=== PATIENT | female | born 1975 | race Caucasian/White ===

== ENCOUNTER 2016-12-29 15:19 | Emergency (ER) | payer MEDICAID ==
[~2016-12-29] VITALS: Ht 157.5 cm; Wt 61.6 kg
[~2016-12-29 15:19] MED LIST: NAPR-260 PO
[2016-12-29 15:22] VITALS: Ht 157.5 cm; Wt 61.6 kg
[2016-12-29 16:43] LABS: BASOPHILS % 0.3 % (0.0-2.0); EOSINOPHILS # 0.1 10^3/ul (0.0-0.5); EOSINOPHILS % 0.5 % (0.0-7.0); HEMOGLOBIN 11.9 g/dl (12.0-16.0); LYMPHOCYTES # 2.6 10^3/ul (0.8-2.9); LYMPHOCYTES % 25.6 % (15.0-51.0); MEAN CORPUSCULAR HEMOGLOBIN 29.2 pg (29.0-33.0); MEAN CORPUSCULAR HGB CONC 32.2 g/dl (32.0-37.0); MEAN CORPUSCULAR VOLUME 90.9 fl (82.0-101.0); MEAN PLATELET VOLUME 8.9 fl (7.4-10.4); MONOCYTE # 0.6 10^3/ul (0.3-0.9); MONOCYTES % 6.4 % (0.0-11.0); NEUTROPHIL # 6.7 10^3/ul (1.6-7.5); PLATELET COUNT 266 10^3/UL (140-415); RED BLOOD COUNT 4.07 10^6/ul (4.20-5.40); RED CELL DISTRIBUTION WIDTH 13.2 % (11.5-14.5)
--- NOTE | 2016-12-29 17:01 | RADRPT ---
PROCEDURE: XR Chest. CLINICAL INDICATION: Chest pain TECHNIQUE: Single frontal radiograph of the chest. COMPARISON: No prior FINDINGS: The lungs are clear. No pleural effusion. No pneumothorax. The cardiomediastinal silhouette is unremarkable. No acute osseous abnormalities. IMPRESSION: No acute air space infiltrates. RPTAT: AADD .Loco Carter MD, MD Date Time Electronically viewed and signed by .Loco Carter MD, on 12/29/2016 17:01 .B/
[2016-12-29 17:02] LABS: ANION GAP 17 (8-16); BLOOD UREA NITROGEN 15 mg/dl (7-20); CALCIUM 9.2 mg/dl (8.4-10.2); CARBON DIOXIDE 27 mmol/L (21-31); CHLORIDE 104 mmol/L (97-110); CREATININE 0.65 mg/dl (0.44-1.00); GLUCOSE 94 mg/dl (70-220); POTASSIUM 3.7 mmol/L (3.5-5.1); SODIUM 144 mmol/L (135-144)
[2016-12-29 17:34] LABS: TROPONIN-I < 0.012 ng/ml (0.00-0.12)
--- NOTE | 2016-12-29 17:39 | ERD ---
ER Documentation Chief Complaint Chief Complaint complains of heart palpitations since today HPI 41-year-old female presents the emergency department complaining of approximately 1 week of heart palpitations. She is a nonspecific sensation that she describes as a tiredness in her chest. She reports no shortness of breath, fevers, chills, cough, hemoptysis. ROS All systems reviewed and are negative except as per history of present illness. Medications Home Meds Active Scripts Naproxen* (Naprosyn*) 500 Mg Tablet, 500 MG PO BID Y for PAIN AND/OR INFLAMMATION, #10 TAB Prov:AUGUSTUS STUBBS DO 06/04/15 Allergies Allergies: Coded Allergies: No Known Drug Allergy (Unverified Allergy, Unknown, 11/17/13) PMhx/Soc History of Surgery: Yes (CSECTION) Anesthesia Reaction: No Hx Neurological Disorder: No Hx Respiratory Disorders: No Hx Cardiac Disorders: No Hx Psychiatric Problems: No Hx Miscellaneous Medical Probl: No Hx Alcohol Use: No Hx Substance Use: No Hx Tobacco Use: No Smoking Status: Never smoker FmHx No history of early sudden cardiac Physical Exam Vitals Vital Signs Date Time Temp Pulse Resp B/P Pulse Ox O2 Delivery O2 Flow Rate FiO2 12/29/16 15:22 98.6 83 20 146/65 100 Physical Exam GENERAL: The patient is well developed and appropriate for usual state of health in no apparent distress HEENT: Pupils equal, round, and reactive to light. EOMI. There is no scleral icterus. NECK: C-spine is soft and supple, there is no meningismus. There is no cervical lymphadenopathy. LUNGS: Clear to auscultation bilaterally. There are no rales, wheezes or rhonchi. HEART: Regular rate and rhythm, no murmurs, clicks, rubs or gallops. ABDOMEN: Soft, non-tender, non-distended. There are bowel sounds in all four quadrants. No rebound or guarding. EXTREMITIES: There is no peripheral cyanosis or edema. No focal swelling or erythema. NEURO: The patient moves all four extremities with 5/5 strength. Cranial nerves II - XII are intact. Normal gait. Alert and oriented SKIN: There is no apparent rash or petechiae. HEME/LYMPHATIC: There is no evidence of excessive bruising or lymphedema. PSYCHIATRIC: The patient does not appear anxious or depressed. Result Diagram: 12/29/16 1635 12/29/16 1635 Results 24 hrs Laboratory Tests Test 12/29/16 16:35 White Blood Count 10.010^3/ul Red Blood Count 4.0710^6/ul Hemoglobin 11.9g/dl Hematocrit 37.0% Mean Corpuscular Volume 90.9fl Mean Corpuscular Hemoglobin 29.2pg Mean Corpuscular Hemoglobin Concent 32.2g/dl Red Cell Distribution Width 13.2% Platelet Count 22865^3/UL Mean Platelet Volume 8.9fl Neutrophils % 67.0% Lymphocytes % 25.6% Monocytes % 6.4% Eosinophils % 0.5% Basophils % 0.3% Nucleated Red Blood Cells % 0.0/100WBC Neutrophils # 6.710^3/ul Lymphocytes # 2.610^3/ul Monocytes # 0.610^3/ul Eosinophils # 0.110^3/ul Basophils # 0.010^3/ul Nucleated Red Blood Cells # 0.010^3/ul Sodium Level 144mmol/L Potassium Level 3.7mmol/L Chloride Level 104mmol/L Carbon Dioxide Level 27mmol/L Anion Gap 17 Blood Urea Nitrogen 15mg/dl Creatinine 0.65mg/dl Glucose Level 94mg/dl Calcium Level 9.2mg/dl Troponin I < 0.012ng/ml Procedures/MDM Patient was taken to a room, seen and evaluated. Comfort measures were initiated. Diagnostic tests were ordered and reviewed. 3 LEAD RHYTHM STRIP: Normal sinus rhythm without ectopy EK lead EKG reviewed by myself: Normal Sinus Rhythm Normal [place] and intervals No ST elevation, depression, or T wave inversion Impression: Normal EKG RADIOLOGY: reviewed with the radiologist REEVALUATION: Patient remained asymptomatic and comfortable with no arrhythmia. MEDICAL DECISION MAKING: Otherwise healthy 41-year-old with no significant cardiac risk factors presents to the emergency department with palpitations. Differential diagnosis entertained was broad and potential high acuity focusing on cardiac concerns. At this time, patient shows no evidence of high-risk cardiac concerns including no evidence of significant ischemia. Overall, she is clinically well appearing and appropriate for outpatient care. Departure Diagnosis: Primary Impression: Palpitations Condition: Stable Patient Instructions: Palpitations Additional Instructions: Please see your doctor this week for a recheck. MENDEZ COHEN Dec 29, 2016 17:39
[2016-12-29 17:41] VITALS: BP 125/85; PULSE 65; RESP 16; TEMP 97.9
== END 2016-12-29 17:42 | disposition home or self-care (01) ==
LOC: E/R 15:19
DX: R00.2 Palpitations (principal)
CPT/HCPCS: 36415; 71010; 80048; 84484; 85025; Z7502; 93005